=== PATIENT | male | born 1945 | race Caucasian/White ===

== ENCOUNTER 2017-12-18 13:08 | Emergency (ER) | payer MEDICARE ==
[2017-12-18] MEDS ORDERED: Sodium Chloride 0.9% 1000 ML 1,000 ML IV STA (13:40)
[2017-12-18] MEDS ORDERED: Phenergan 25 MG INJ IV ONE (13:40)
[2017-12-18] MEDS ORDERED: MORPHINE SULFATE 4 MG INJ IV ONE (13:40)
--- NOTE | 2017-12-18 13:40 | ERPHSYRPT ---
- History of Present Illness Time Seen by Provider: 12/18/17 13:31 Historian: patient Exam Limitations: no limitations Patient Subjective Stated Complaint: pt reports approx 1100 began to have left flank pain that radiates around to his abdomen. reports history of kidney stones and states his pain is similar to previous episodes. Triage Nursing Assessment: pt is aox3, pt afebrile, pt resps easy and non labored, radial pulses strong and equal, abd is soft and non tender with palpation. intermittent pain localized to the left flank that radiates to the right middle quadrant of the abdomen. skin is pink warm and dry. Physician History: The patient is a 9-year-old male with his and family complaining of a sudden onset of left flank pain at 11 AM or 2-1/2 hours ago. The pain was somewhat intermittent but has increased. It increased to the point where he was nauseated and almost vomited. The pain was beginning to wrap around from his left flank to his left abdomen. The pain has now subsided significantly. He was nauseated. He denies fever or chills. He denies diarrhea. He believes this is another kidney stone. A few months ago he had passed a kidney stone and was told when he had a CT scan, that there was another kidney stone and one of his kidneys. He has had 2 kidney stones that he has passed in the past and 2 other kidney stones had to be extracted. His past medical history significant for colon cancer, partial colectomy, kidney stones, and arthroscopic knee surgery. Timing/Duration: today, hour(s) (2 1/2) Activities at Onset: none Quality: sharpness Abdominal Pain Onset Location: flank (left) Pain Radiation: LLQ Severity of Pain-Max: severe Severity of Pain-Current: mild Modifying Factors: Improves With: analgesics (ibuprofen 800 mg) Associated Symptoms: nausea, No vomiting Previous symptoms: same symptoms as today Allergies/Adverse Reactions: No Known Drug Allergies Allergy (Unverified 12/18/17 13:28) Hx Tetanus, Diphtheria Vaccination/Date Given: No Hx Influenza Vaccination/Date Given: No Hx Pneumococcal Vaccination/Date Given: No Immunizations Up to Date: Yes - Review of Systems Constitutional: No Fever, No Chills Eyes: No Symptoms Ears, Nose, & Throat: No Symptoms Respiratory: No Cough, No Dyspnea Cardiac: No Chest Pain, No Edema, No Syncope Abdominal/Gastrointestinal: Abdominal Pain, Nausea, No Vomiting, No Diarrhea Genitourinary Symptoms: No Dysuria Musculoskeletal: No Back Pain, No Neck Pain Skin: No Rash Neurological: No Dizziness, No Focal Weakness, No Sensory Changes Psychological: No Symptoms Endocrine: No Symptoms Hematologic/Lymphatic: No Symptoms Immunological/Allergic: No Symptoms All Other Systems: Reviewed and Negative - Past Medical History Pertinent Past Medical History: Yes Musculoskeletal History: Arthritis GI Medical History: Colorectal Cancer Other Medical History: colon cancer with resection, underwent radiation - Past Surgical History Past Surgical History: Yes Musculoskeletal: Orthopedic Surgery - Social History Smoking Status: Never smoker Drug Use: none Patient Lives Alone: No - Nursing Vital Signs Nursing Vital Signs: Initial Vital Signs Temperature 98.5 F 12/18/17 13:13 Pulse Rate 60 12/18/17 13:13 Respiratory Rate 20 12/18/17 13:13 Blood Pressure 134/88 12/18/17 13:13 O2 Sat by Pulse Oximetry 97 12/18/17 13:13 Pain Scale Pain Intensity 1 - Physical Exam General Appearance: mild distress Eye Exam: PERRL/EOMI, eyes nml inspection Ears, Nose, Throat Exam: normal ENT inspection, pharynx normal, moist mucous membranes Neck Exam: normal inspection, non-tender, supple, full range of motion Respiratory Exam: normal breath sounds, lungs clear, No respiratory distress Cardiovascular Exam: regular rate/rhythm, normal heart sounds Gastrointestinal/Abdomen Exam: tenderness (left abd), No guarding Rectal Exam: not done Back Exam: CVA tenderness (left) Extremity Exam: normal inspection, normal range of motion, pelvis stable Neurologic Exam: alert, oriented x 3, cooperative, normal mood/affect, nml cerebellar function, sensation nml, No motor deficits Skin Exam: normal color, warm, dry SpO2 Interpretation: normal SpO2: 97 - CT Exams Abdomen/Pelvis CT Interpretation: Tele-radiologist Report, Other (3.5 calculus in mid left ureter with severe hydronesphrosis; calculus in bladder at left UVJ. per Dr Cohen.) Ordered Tests: Active Orders 24 hr Category Date Time Status IV Insertion STAT Care 12/18/17 13:40 Active ABDOMEN AND PELVIS W/0 CONTRAS [CT] Stat Exams 12/18/17 14:41 Taken CBC W DIFF Stat Lab 12/18/17 14:00 Completed CMP Stat Lab 12/18/17 14:00 Completed CULTURE,URINE Stat Lab 12/18/17 14:00 Received LIPASE Stat Lab 12/18/17 14:00 Completed Manual Differential NC Stat Lab 12/18/17 14:00 Completed UA W/ MICROSCOPIC Stat Lab 12/18/17 14:00 Completed Medication Summary Discontinued Medications Generic Name Dose Route Start Last Admin Trade Name Darnell PRN Reason Stop Dose Admin Hydromorphone HCl 2 mg 12/18/17 16:05 12/18/17 16:09 Hydromorphone 1 Mg/Ml Ampule IV 12/18/17 16:06 2 mg STAT ONE Administration Hydromorphone HCl Confirm 12/18/17 16:07 Dilaudid 2 Mg Injection Administered 12/18/17 16:08 Dose 2 mg .ROUTE .STK-MED ONE Sodium Chloride 1,000 mls @ 999 mls/hr 12/18/17 13:40 12/18/17 13:56 Sodium Chloride 0.9% 1000 Ml IV 12/18/17 14:40 999 mls/hr .Q1H1M STA Administration Sodium Chloride Confirm 12/18/17 13:49 Sodium Chloride 0.9% 1000 Ml Administered 12/18/17 13:50 Dose 1,000 mls @ ud .ROUTE .STK-MED ONE Morphine Sulfate 4 mg 12/18/17 13:40 12/18/17 13:56 Morphine Sulfate 4 Mg Inj IV 12/18/17 13:41 4 mg STAT ONE Administration Morphine Sulfate Confirm 12/18/17 13:49 Morphine Sulfate 4 Mg Inj Administered 12/18/17 13:50 Dose 4 mg .ROUTE .STK-MED ONE Ondansetron HCl 4 mg 12/18/17 16:01 12/18/17 16:09 Zofran 4 Mg/2 Ml Vial IV 12/18/17 16:02 4 mg STAT ONE Administration Ondansetron HCl Confirm 12/18/17 16:06 Zofran 4 Mg/2 Ml Vial Administered 12/18/17 16:07 Dose 4 mg .ROUTE .STK-MED ONE Promethazine HCl 25 mg 12/18/17 13:40 12/18/17 13:57 Phenergan 25 Mg Inj IV 12/18/17 13:41 25 mg STAT ONE Administration Promethazine HCl Confirm 12/18/17 13:49 Phenergan 25 Mg Inj Administered 12/18/17 13:50 Dose 25 mg .ROUTE .STK-[facility] ONE Tamsulosin HCl 0.4 mg 12/18/17 13:41 12/18/17 13:56 Flomax 0.4 Mg PO 12/18/17 13:42 0.4 mg DAILY STA Administration Tamsulosin HCl Confirm 12/18/17 13:49 Flomax 0.4 Mg Administered 12/18/17 13:50 Dose 0.4 mg .ROUTE .[facility] ONE Lab/Rad Data: Laboratory Result Diagrams 12/18/17 14:00 12/18/17 14:00 Laboratory Results 12/18/17 12/18/17 12/18/17 Range/Units 14:00 14:00 14:00 WBC 9.6 (4.0-10.5) K/mm3 RBC 5.07 (4.1-5.6) M/mm3 Hgb 15.7 (12.5-18.0) gm/dl Hct 45.9 (42-50) % MCV 90.5 (78-100) fl MCH 31.0 (26-32) pg MCHC 34.2 (32-36) g/dl RDW 13.4 (11.5-14.0) % Plt Count 181 (150-450) K/mm3 MPV 10.4 H (6-9.5) fl Segmented Neutrophils 88 H (36.-66.) % Lymphocytes (Manual) 10 L (24-44) % Monocytes (Manual) 2 (0.0-12.0) % Differential Comment NORMAL Platelet Estimate NORMAL (NORMAL) Sodium 144 (136-145) mEq/L Potassium 4.0 (3.5-5.1) mEq/L Chloride 106 (98-107) mEq/L Carbon Dioxide 27.4 (21-32) mEq/L Anion Gap 14.9 (5-15) MEQ/L BUN 17 (9-20) mg/dL Creatinine 1.30 (0.55-1.30) mg/dl Estimated GFR 58 ML/MIN Glucose 116 H (70-110) MG/DL Calcium 8.9 (8.5-10.1) mg/dL Total Bilirubin 0.40 (0.2-1.0) mg/dL AST 16 (15-37) U/L ALT 20 (12-78) U/L Alkaline Phosphatase 99 (46-116) U/L Serum Total Protein 6.8 (6.4-8.2) gm/dL Albumin 3.7 (3.4-5.0) g/dL Lipase 100 (73-393) U/L Ur Collection Type CLEAN CATCH Urine Color YELLOW (YELLOW) Urine Appearance HAZY (CLEAR) Urine pH 5.0 (5-6) Ur Specific [place] 1.020 (1.005-1.025) Urine Protein TRACE (Negative) Urine Ketones NEGATIVE (NEGATIVE) Urine Blood 5-10 (0-5) Nicholas/ul Urine Nitrite NEGATIVE (NEGATIVE) Urine Bilirubin NEGATIVE (NEGATIVE) Urine Urobilinogen NORMAL (0-1) mg/dL Ur Leukocyte Esterase TRACE (NEGATIVE) Urine Microscopic RBC 5-10 (0-2) /HPF Urine Microscopic WBC 2-5 (0-5) /HPF Ur Epithelial Cells FEW (FEW) /HPF Calcium Oxalate Crystal 0-2 (NEGATIVE) /HPF Urine Bacteria FEW (NEGATIVE) /HPF Urine Mucus MODERATE (NEGATIVE) /HPF Urine Culture Reflexed YES (NO) Urine Glucose NEGATIVE (NEGATIVE) mg/dL Specimen Received 12-18-17 1430 - Progress Progress: improved Progress Note: 12/18/17 14:20 Reviewed abd/pelvis CT report from 02/24/17 from [facility] ER that showed non-occluding calculus of 3 mm in left kidney. 12/18/17 17:11 Pt care discussed with Dr Zapata and Dr Calzada at [facility]. Pt accepted by Dr Zapata. Counseled pt/family regarding: lab results, diagnosis, rad results - Departure Time of Disposition: 17:10 Departure Disposition: Transfer (Transfer to [facility] ER per Dr Zapata.) Clinical Impression: Renal calculus, left, Hydronephrosis Condition: Stable Critical Care Time: No Referrals: NASIM REYNA [Primary Care Provider] -
[2017-12-18] MEDS ORDERED: Flomax 0.4 MG PO STA (13:41)
[2017-12-18] MEDS ORDERED: Phenergan 25 MG INJ ONE (13:49)
[2017-12-18] MEDS ORDERED: MORPHINE SULFATE 4 MG INJ ONE (13:49)
[2017-12-18] MEDS ORDERED: Flomax 0.4 MG ONE (13:49)
[2017-12-18] MEDS ORDERED: Sodium Chloride 0.9% 1000 ML 1,000 ML ONE (13:49)
[2017-12-18 14:08] LABS: Granulocyte Absolute (ANC) 8.56 (1.4-6.9); Hematocrit 45.9 % (42-50); Hemoglobin 15.7 gm/dl (12.5-18.0); Mean Cell Volume 90.5 fl (78-100); Mean Corpuscular Hgb Concent. 34.2 g/dl (32-36); Mean Platelet Volume 10.4 fl (6-9.5); Platelet Count 181 K/mm3 (150-450); Red Blood Count 5.07 M/mm3 (4.1-5.6); Red Cell Distribution Width 13.4 % (11.5-14.0); White Blood Count 9.6 K/mm3 (4.0-10.5)
[2017-12-18 14:24] LABS: ALBUMIN 3.7 g/dL (3.4-5.0); ANION GAP 14.9 MEQ/L (5-15); BILIRUBIN,TOTAL 0.4 mg/dL (0.2-1.0); Calcium 8.9 mg/dL (8.5-10.1); Carbon Dioxide 27.4 mEq/L (21-32); Creatinine 1 1.3 mg/dl (0.55-1.30); Total Protein 6.8 gm/dL (6.4-8.2)
[2017-12-18 14:31] LABS: Appearance HAZY (CLEAR); Bacteria FEW /HPF (NEGATIVE); Bilirubin NEGATIVE (NEGATIVE); Epithelial Cells FEW /HPF (FEW); Glucose NEGATIVE (NEGATIVE); Ketones NEGATIVE (NEGATIVE); Leukocyte Esterase TRACE (NEGATIVE); Mucus MODERATE /HPF (NEGATIVE); Nitrite NEGATIVE (NEGATIVE); Protein,Urine Dip TRACE (Negative); Urobilinogen NORMAL mg/dL (0-1)
[2017-12-18 14:32] LABS: CALCIUM OXALATE CRYSTALS 0-2 /HPF (NEGATIVE)
[2017-12-18 15:25] LABS: Lymphocytes 10 % (24-44); Monocyte 2 % (0.0-12.0); Neutrophils 88 % (36.-66.); Total Cells Counted 100
[2017-12-18 15:26] LABS: Platelet Estimate NORMAL (NORMAL)
[2017-12-18] MEDS ORDERED: Zofran 4 MG/2 ML VIAL IV ONE (16:01)
[2017-12-18] MEDS ORDERED: Hydromorphone 1 mg/ml Ampule IV ONE (16:05)
[2017-12-18] MEDS ORDERED: Zofran 4 MG/2 ML VIAL ONE (16:06)
[2017-12-18] MEDS ORDERED: DILAUDID 2 MG INJECTION ONE (16:07)
[2017-12-18 17:47] VITALS: BP 133/78; O2SAT 94
[2017-12-18 17:52] VITALS: PULSE 66
--- NOTE | 2017-12-18 21:41 | XRAY ---
Indication: Left upper quadrant/flank pain. History kidney stones. Multiple contiguous axial images obtained through the abdomen and pelvis without contrast as ordered. Comparison: None Lung bases demonstrates bibasilar dependent atelectasis. No infiltrate or effusion. Heart is not enlarged. There is a 4 mm distal left ureteral calculus, approximately S1 level. Proximal ureter is distended up to 2 cm and there is moderate/significant hydronephrosis without perinephric fluid consistent with obstructive uropathy. Additional 5 mm calculus in the left posterior urinary bladder. Noncontrasted stomach and bowel loops appear nonobstructed. Mild/moderate diffuse scattered colonic fecal debris. Multiple hepatic cysts, largest 5.5 cm. No free fluid/air. Remaining liver, gallbladder, pancreas, spleen, adrenal glands, right kidney, right ureter, and bladder appear unremarkable for noncontrast exam. Minimal aortoiliac calcifications without AAA. Ectatic and arteriosclerotic celiac artery. Osseous structures intact with mild/moderate multilevel degenerative spondylosis greatest at the L4-L5 level. Bilateral L4 spondylolysis with 12 mm spondylolisthesis. Impression: 1. Distal left ureteral and urinary bladder calculi as detailed with proximal ureteral distention and hydronephrosis consistent with obstructive uropathy. 2. Fecal stasis without obstruction. 3. Hepatic cysts. 4. Multilevel degenerative spondylosis. Bilateral L4 spondylolysis with grade 1-2 spondylolisthesis. Comment: Preliminary interpretation was made by [facility]. No discrepancy. CTDI 23.36
== END 2017-12-18 18:03 | disposition short-term general hospital (02) ==
LOC: ED 13:08
DX: N13.2 Hydronephrosis with renal and ureteral calculous obstruction (principal); R11.0 Nausea; Z87.442 Personal history of urinary calculi
CPT/HCPCS: 36000; 36415; 74176; 80053; 81000; 83690; 85025; 87086; 96360; 96374; 96375; 99285; J1170; J2270; J2405; J2550; A9270-GY

== ENCOUNTER 2019-08-03 06:14 | Day surgery (SDC) | payer MEDICARE ==
--- NOTE | 2019-08-01 15:47 | HP ---
DATE OF SURGERY: 08/03/2019 ANTICIPATED PROCEDURE: Colonoscopy. HISTORY OF PRESENT ILLNESS: Patient presents for screening colonoscopy. He has had polyps in the past, last colonoscopy five years ago. PAST MEDICAL HISTORY: None. ALLERGIES: NONE. MEDICATIONS: None. PAST SURGICAL HISTORY: None. SOCIAL HISTORY: Negative. FAMILY HISTORY: Negative. REVIEW OF SYSTEMS: CVS: Negative. PULMONARY: Negative. PHYSICAL EXAMINATION: VITAL SIGNS: Normal. CHEST: Clear. COR: Regular. ABDOMEN: Satisfactory. IMPRESSION: Screening colonoscopy. PLAN: Colonoscopy.
[~2019-08-03 06:14] MED LIST: Lactated Ringers 1,000 ML IV SCH
[2019-08-03] MEDS ORDERED: DIPRIVAN 200 MG/20 ML IV ONE (08:35)
--- NOTE | 2019-08-03 09:13 | OP ---
SURGERY DATE/TIME: 08/03/2019 0835 PREOPERATIVE DIAGNOSIS: History of polyps, colon cancer. Patient has not had a recent endoscopic examination. POSTOPERATIVE DIAGNOSIS: History of polyps, colon cancer. Patient has not had a recent endoscopic examination. PROCEDURE: Colonoscopy to cecum. SURGEON: Lex Adkins M.D. ANESTHESIA: MAC. COMPLICATIONS: None. CONDITION: Stable. INDICATION: The patient has history of polyps. He has had colorectal cancer with a low anterior. He is sewn down very low. He presents for surveillance exam. DESCRIPTION OF PROCEDURE: He was taken to endoscopy. Left lateral decubitus position. Anal digital examination satisfactory. Scope introduced. Anastomosis satisfactory. Anastomosis at 3 cm. The prep was poor. Despite this the cecum was cannulated. The appendiceal orifice and ileocecal orifice were both visible. On circumferential withdrawal, no gross mucosal lesions were noted although prep was poor. With a poor prep he is to follow back in three years.
[2019-08-03 10:04] VITALS: BP 126/87; PULSE 65; O2SAT 98
== END 2019-08-03 09:55 | disposition home or self-care (01) ==
LOC: SDC 06:14
PROVIDERS: ATTEND Surgery
DX: Z08 Encounter for follow-up examination after completed treatment for malignant neoplasm (principal); Z85.038 Personal history of other malignant neoplasm of large intestine; Z86.010 Personal history of colon polyps
CPT/HCPCS: 99100; J2704

== ENCOUNTER 2022-08-20 07:57 | Day surgery (SDC) | payer MEDICARE ==
--- NOTE | 2022-08-18 10:41 | HP ---
DATE OF SURGERY: 08/20/2022 HISTORY OF PRESENT ILLNESS: The patient presents for a three year follow up colonoscopy. He had some colon polyps in the past. Denies GI signs or symptoms at this time. The patient also has a personal history of colon cancer. The patient has had a colon resection in the remote past. PAST MEDICAL HISTORY: Colon cancer. PAST SURGICAL HISTORY: Knee scope. Kidney stone removal. Low anterior resection. ALLERGIES: NKDA. MEDICATIONS: Dicyclomine, magnesium, potassium, ascorbic acid, Cialis. FAMILY HISTORY: None reported. SOCIAL HISTORY: Occasional alcohol. Denies smoking. REVIEW OF SYSTEMS: CONSTITUTIONAL: Denies fever or chills. CHEST: Denies shortness of breath. CVS: Denies chest pain. ABDOMEN: Denies abdominal pain. PHYSICAL EXAMINATION: GENERAL: No acute distress. CHEST: Nonlabored. No shortness of breath. CVS: Regular rate and rhythm. ABDOMEN: Soft. IMPRESSION: History of colon cancer, history of low anterior resection. PLAN: Colonoscopy with Dr. Lex Adkins. As dictated by Latrice Dennison NP.
[2022-08-20] MEDS ORDERED: Lactated Ringers 1,000 ML IV ONE (08:09)
[2022-08-20] MEDS ORDERED: Xylocaine-Mpf 2% 5 Ml Vial ONE (11:20)
[2022-08-20] MEDS ORDERED: DIPRIVAN 200 MG/20 ML IV ONE (11:20)
[2022-08-20] MEDS ORDERED: Lactated Ringers 1,000 ML IV SCH (11:30)
[2022-08-20 11:39] VITALS: O2SAT 96
[2022-08-20 11:41] VITALS: PULSE 80
--- NOTE | 2022-08-20 12:00 | OP ---
SURGERY DATE/TIME: 08/20/2022 1119 PREOPERATIVE DIAGNOSIS: Follow up. POSTOPERATIVE DIAGNOSIS: This exam gave no medical benefit today. PROCEDURE: Colonoscopy complete to cecum. SURGEON: Lex Adkins M.D. ANESTHESIA: MAC. COMPLICATIONS: None. CONDITION: Stable. INDICATION: He had low end resection in 2012. He also has a personal history of polyps. He is having a three year follow up. DESCRIPTION OF PROCEDURE: He is taken to endoscopy. There was some dry rectal stool. The scope inserted. There was a large amount of stool, this was advanced up to about 24. It was packed with stool. It could not be advanced. The procedure was totally aborted.
[2022-08-20 12:01] VITALS: BP 130/84
== END 2022-08-20 12:00 | disposition home or self-care (01) ==
LOC: SDC 07:57
PROVIDERS: ATTEND Surgery
DX: Z09 Encounter for follow-up examination after completed treatment for conditions other than malignant neoplasm (principal); Z85.038 Personal history of other malignant neoplasm of large intestine; Z86.010 Personal history of colon polyps
CPT/HCPCS: 99100; J2704